=== PATIENT | female | born 1990 | race Caucasian/White ===

== ENCOUNTER 2018-04-11 23:01 | Inpatient (IN) | payer OTHER ==
[~2018-04-11] VITALS: Ht 162.6 cm; Wt 68.6 kg
[2018-04-11 22:00] VITALS: BP 115/70; PULSE 66
[2018-04-11 22:30] VITALS: BP 115/75; PULSE 83
[2018-04-11 23:00] VITALS: BP 119/77; PULSE 97
[~2018-04-11 23:01] MED LIST changes: -IBU600 MG PO
[2018-04-11 23:24] VITALS: BP 131/78; PULSE 81; TEMP 97.5
[2018-04-11 23:31] LABS: BASO # 0.1 (0.0-0.2); BASO % 0.4 % (0.0-2.0); EOS # 0.1 (0.0-0.7); EOS % 0.6 % (0-4.0); GRAN # 9.6 (1.4-6.5); GRAN % 68.6 % (42.2-75.2); HEMOGLOBIN 15.1 g/dl (12.5-16.0); LYMPH # 3.1 (1.2-3.4); LYMPH % 22.1 % (20.0-51.0); MEAN CELL VOLUME 89 fl (80.0-100.0); MEAN CORPUSCULAR HEMOGLOBIN 32 pg (27.0-31.0); MEAN CORPUSCULAR HGB CONC 36 g/dl (33.0-37.0); MEAN PLATELET VOLUME 10.1 fl (7.4-10.4); MONO % 7.2 % (1.7-9.3); PLATELET COUNT 221 K/mm3 (130-400); RED BLOOD COUNT 4.71 M/mm3 (4.10-5.30); REDCELL DISTRIBUTION WIDTH-CV 12.9 % (11.5-14.5)
[2018-04-11 23:45] VITALS: BP 114/66; PULSE 85
[2018-04-12] VITALS (15 sets, daily range): BP systolic 87–126; BP diastolic 53–74; PULSE 75–106; TEMP 97.6–98.9
[2018-04-13 01:39] VITALS: BP 101/56; PULSE 77; TEMP 97.3
[2018-04-13 06:30] VITALS: BP 105/73; PULSE 86; TEMP 97.9
[2018-04-13] MEDS ORDERED: IBU600 MG PO (08:55)
== END 2018-04-13 11:55 | disposition home or self-care (01) | DRG 807 ==
LOC: LDR 23:01 → OB 23:01 → LDR 04-12 20:18 → OB 04-13 11:55
PROVIDERS: Obstetrics & Gynecology
PROC: 10E0XZZ Delivery of Products of Conception, External Approach (ICD-10-PCS; principal; 2018-04-12)
PROC: 0KQM0ZZ Repair Perineum Muscle, Open Approach (ICD-10-PCS; 2018-04-12)
DX: O70.1 Second degree perineal laceration during delivery (principal); Z37.0 Single live birth; Z3A.40 40 weeks gestation of pregnancy; Z67.31 Type AB blood, Rh negative; O26.893 Other specified pregnancy related conditions, third trimester
CPT/HCPCS: J2590; J2791; J7120

== ENCOUNTER → 2018-04-11 | Outpatient (CLI) | payer OTHER ==
[~2018-04-11] MED LIST: IBU600 MG PO; MOTRIN 800800 MG/TAB PO; PERCOCET 325 MG1 TA2 PO
== END ==
LOC: LDRO 21:30
DX: Z01.89 Encounter for other specified special examinations (principal); Z53.9 Procedure and treatment not carried out, unspecified reason

== ENCOUNTER → 2020-10-15 | Outpatient (CLI) | payer OTHER ==
[~2020-10-15] MED LIST changes: +IBU600 MG PO
== END ==
LOC: COL.RAD 13:53
DX: R10.2 Pelvic and perineal pain (principal)